=== PATIENT | male | born 2005 | race Hispanic/Latino ===

== ENCOUNTER → 2023-07-28 | Emergency (ER) | payer OTHER, SELFPAY ==
[~2023-07-28] MED LIST: AMOX/K CLAV 875 MG TAB ONE; IBUPROFEN 200 MG TAB PO ONE; TDAP (DIPHTH,PERTUSS(ACELL),TET VAC) 0.5 ML VIAL IMVAC ONE
--- NOTE | 2023-07-28 22:31 | EDPHYS ---
Physician Documentation [facility] Name: Mynor White Age: 18 yrs Sex: Male : 2005 Arrival Date: 07/28/2023 Time: 22:15 Bed DIS3 Private MD: ED Physician Phoebe Tavarez HPI: 07/28 22:39 This 18 yrs old Male presents to ER via Ambulatory with complaints of Dog Bite. 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 States he was trying to break up a fight between his dogs when one of them bit him. . Historical: - Allergies: 22:36 No Known Allergies; jj7 - PMHx: 22:36 None; jj7 - PSHx: 22:36 None; jj7 - Immunization history:: Adult Immunizations unknown. - Social history:: Smoking status: Reported history of juuling and/or vaping. Patient uses street drugs, marijuana, Patient/guardian denies using alcohol. ROS: 22:38 Constitutional: Negative for fever, chills, and weight loss, kb 22:38 Skin: Positive for abrasion(s), ecchymosis, swelling, of the left wrist, 22:38 All other systems are negative, Exam: 22:38 Constitutional: This is a well developed, well nourished patient who is awake, alert, kb and in no acute distress. Head/Face: Normocephalic, atraumatic. ENT: Moist Mucous membranes Cardiovascular: Regular rate Respiratory: Respirations even and unlabored. No increased work of breathing. Talking in full sentences Abdomen/GI: Soft, non-tender. No distention MS/ Extremity: Pulses equal, no cyanosis. Neurovascular intact. Full, normal range of motion. Neuro: Awake and alert, GCS 15, oriented to person, place, time, and situation. Moves all extremities. Normal gait. 22:38 Skin: injury, bite(s), superficial, of the left wrist, contusion(s), that are superficial, of the left wrist, Vital Signs: 22:32 BP 96 / 74; Pulse 70; Resp 19; Temp 98.7; Pulse Ox 100% ; Weight 63.5 kg; Height 5 ft. jj7 11 in. ; Pain 8/10; 22:32 Body Mass Index 19.53 (63.50 kg, 180.34 cm) jj7 22:32 Pain Scale: Adult jj7 MDM: 22:23 Patient medically screened. kb 22:39 Differential diagnosis: superficial laceration, tendon injury, vascular injury, kb abrasion, contusion. Data reviewed: vital signs, nurses notes. Counseling: I had a detailed discussion with the patient and/or guardian regarding the historical points, exam findings, and any diagnostic results supporting the discharge/admit diagnosis, the need for outpatient follow up, a family practitioner, to return to the emergency department if symptoms worsen or persist or if there are any questions or concerns that arise at home. 07/28 22:30 Order name: Ice pack; Complete Time: 22:50 kb Administered Medications: 22:45 Drug: Tetanus-Diphtheria Toxoid IM Adult 0.5 ml IM once; Provide Vaccine Information jj7 Statement (VIS). {Supervisor Speech: Smart Cube; Exp: WedDec 08 2024; Lot #: [id number]; Series: 1 of ; Patient Consent: Obtained; Date/Time: ; Source Name: Mynor White; Source Relationship: Self; Address Information: [address] [place] [address]; ; Education: Provided; VIS Presented Date: ; VIS Publication: Tetanus/Diphtheria (Td) Vaccine VIS 10/27/2016 (historic)} Route: IM; Site: right deltoid; 22:55 Follow up: Response: No adverse reaction jj7 22:45 Drug: Ibuprofen PO 600 mg PO once Route: PO; jj7 22:55 Follow up: Response: No adverse reaction jj7 22:45 Drug: Amoxicillin-Clavulanate PO 875 mg PO once Route: PO; jj7 22:55 Follow up: Response: No adverse reaction jj7 Disposition: 07/29 07:04 Co-signature as Attending Physician, Phoebe Tavarez MD I agree with the assessment and gb1 plan of care. I reviewed the patient's care provided by the Advanced Practice Provider and agree with the diagnosis and treatment plan. Disposition Summary: 07/28/23 22:31 Discharge Ordered Notes: Location: Home kb Condition: Stable kb Diagnosis - Bitten by dog kb Followup: kb - With: Emergency Department - When: As needed - Reason: Worsening of condition Followup: kb - With: Private Physician - When: 2 - 3 days - Reason: Recheck today's complaints, Continuance of care, Re-evaluation by your physician Discharge Instructions: - Discharge Summary Sheet kb - Animal Bite, Adult, [id number] kb Forms: - Medication Reconciliation Form kb - Thank You Letter kb - Antibiotic Education kb - Prescription Opioid Use kb - Patient Portal Instructions kb - Leadership Thank You Letter kb Prescriptions: - Augmentin 875-125 mg Oral Tablet - take 1 tablet ORAL route every 12 hours for 10 days; 20 tablet; Refills: 0, kb Product Selection Permitted Signatures: Michaela Lopez, Fabrizio Johnson, RN RN jj7 Phoebe Tavarez MD MD gb1
--- NOTE | 2023-07-28 23:07 | ER ---
Nurse's Notes [facility] Name: Mynor White Age: 18 yrs Sex: Male : 2005 Arrival Date: 07/28/2023 Time: 22:15 Bed DIS3 Private MD: Diagnosis: Bitten by dog Presentation: 07/28 22:32 Chief complaint: Patient states: GOT BITE BY HIS DOG TODAY. STATES HIS OTHER DOGS WERE jj7 FIGHTING AND HE TRIED TO BREAK IT UP AND GOT BIT ON HIS LEFT WRIST. 1 HR AGO. Coronavirus screen: At this time, the client does not indicate any symptoms associated with coronavirus-19. Ebola Screen: No symptoms or risks identified at this time. Initial Sepsis Screen: Does the patient meet any 2 criteria? No. Patient's initial sepsis screen is negative. Does the patient have a suspected source of infection? No. Patient's initial sepsis screen is negative. Risk Assessment: Do you want to hurt yourself or someone else? Patient reports no desire to harm self or others. 22:32 Method Of Arrival: Ambulatory [facility] 22:32 Acuity: JOVANNY 4 [facility] 22:36 Onset of symptoms was July 28, 2023. [facility] Triage Assessment: 22:36 Bite description: bite sustained to left wrist by a dog, animal information: [facility] Appearance: appeared well, is from animal, vaccination(s) is current, was sustained 1-2 hours ago. Animal status: DOG IS STILL AT HOME. General: Appears in no apparent distress. uncomfortable, Behavior is calm, cooperative, appropriate for age. Pain: Complains of pain in left wrist Pain currently is 8 out of 10 on a pain scale. Derm: PUNCTURE WOUND TO TOP OF WRIST. SCRATCH NEXT TO WOUND AND UNDER THE WRIST Reports pain. Historical: - Allergies: 22:36 No Known Allergies; j7 - PMHx: 22:36 None; j7 - PSHx: 22:36 None; jj Historical Immunization: - Administered Vaccines 22:45 Tetanus-Diphtheria Toxoid IM Adult 0.5 ml [facility] Hand Outside Cutter: SAW Instrument; Exp: WedDec 08 2024; Lot #: [id number]; Series: 1 of 1; Patient Consent: Obtained; Date/Time: ; Source Name: Mynor White; Source Relationship: Self; Address Information: [address] [place] [id number]; ; Education: Provided; VIS Presented Date: ; VIS Publication: Tetanus/Diphtheria (Td) Vaccine VIS 10/27/2016 (historic) 22:45 Ibuprofen PO 600 mg jj7 22:45 Amoxicillin-Clavulanate PO 875 mg jj7 - Immunization history:: Adult Immunizations unknown. - Social history:: Smoking status: Reported history of juuling and/or vaping. Patient uses street drugs, marijuana, Patient/guardian denies using alcohol. Screenin:36 [facility] ED Fall Risk Assessment (Adult) History of falling in the last 3 months, jj7 including since admission No falls in past 3 months (0 pts) Confusion or Disorientation No (0 pts) Intoxicated or Sedated No (0 pts) Impaired Gait No (0 pts) Mobility Assist Device Used No (0 pt) Altered Elimination No (0 pt) Score/Fall Risk Level 0 - 2 = Low Risk Oriented to surroundings, Maintained a safe environment, Educated pt \T\ family on fall prevention, incl call for assistance when getting out of bed. Abuse screen: Denies threats or abuse. Nutritional screening: No deficits noted. Tuberculosis screening: No symptoms or risk factors identified. Assessment: 22:36 Reassessment: SEE TRIAGE ASSESSMENT. jj7 22:36 Derm: Skin PUNCTURE WOUND AND SCRATCH Skin is. jj7 Vital Signs: 22:32 BP 96 / 74; Pulse 70; Resp 19; Temp 98.7; Pulse Ox 100% ; Weight 63.5 kg; Height 5 ft. jj7 11 in. ; Pain 8/10; 22:32 Body Mass Index 19.53 (63.50 kg, 180.34 cm) jj7 22:32 Pain Scale: Adult j7 ED Course: 22:19 Patient arrived in ED. es 22:22 Michaela Lopez FNP-C [facility]. kb 22:23 Phoebe Tavarez MD is Attending Physician. kb 22:36 Triage completed. jj7 22:36 Patient has correct armband on for positive identification. jj7 22:36 No provider procedures requiring assistance completed. Patient did not have IV access jj7 during this emergency room visit. 22:39 Arm band placed on right wrist. jj7 Administered Medications: 22:45 Drug: Tetanus-Diphtheria Toxoid IM Adult 0.5 ml IM once; Provide Vaccine Information jj7 Statement (VIS). {Hand Outside Cutter: SAW Instrument; Exp: WedDec 08 2024; Lot #: [id number]; Series: 1 of 1; Patient Consent: Obtained; Date/Time: ; Source Name: Mynor White; Source Relationship: Self; Address Information: [address] [place] [id number]; ; Education: Provided; VIS Presented Date: ; VIS Publication: Tetanus/Diphtheria (Td) Vaccine VIS 10/27/2016 (historic)} Route: IM; Site: right deltoid; 22:55 Follow up: Response: No adverse reaction jj7 22:45 Drug: Ibuprofen PO 600 mg PO once Route: PO; jj7 22:55 Follow up: Response: No adverse reaction jj7 22:45 Drug: Amoxicillin-Clavulanate PO 875 mg PO once Route: PO; jj7 22:55 Follow up: Response: No adverse reaction jj7 Medication: 22:36 VIS not applicable for this client. jj7 Outcome: 22:31 Discharge ordered by MD. beckham 22:55 Discharged to home ambulatory, jj7 22:55 Condition: good 22:55 Discharge instructions given to patient, Instructed on discharge instructions, medication usage, Demonstrated understanding of instructions, medications, Prescriptions given X 1, 23:06 Patient left the ED. jj7 Signatures: Michaela Lopez FNP-C FNP-Lydia Garcia Juwairiyah, RN RN jj7
[2023-07-29 04:47] VITALS: BP 96/74; TEMP 98.7; O2SAT 100
== END ==
LOC: ER 22:15
DX: S61.532A Puncture wound without foreign body of left wrist, initial encounter (principal); W54.0XXA Bitten by dog, initial encounter; Z23 Encounter for immunization
CPT/HCPCS: 90471; 99284